=== PATIENT | male | born 1950 | race American Indian/Alaskan Native ===

== ENCOUNTER 2016-10-10 23:37 | Emergency (ER) | payer MEDICAID, MEDICARE ==
[2016-10-11 00:35] VITALS: BP 198/134
[2016-10-11 02:32] LABS: Basophils % (Auto) 1.2 % (0.0-1.8); Mean Corpuscular HGB Conc 31 % (32-34); Mean Corpuscular Hemoglobin 28 pg (28-32); Mean Corpuscular Volume 90 fl (84-94); Red Blood Count 5.68 M/mm3 (3.65-5.03); Red Cell Distribution Width 15.9 % (13.2-15.2); White Blood Count 6.1 K/mm3 (4.5-11.0)
[2016-10-11 02:39] LABS: Hematocrit 51.1 % (35.5-45.6); Hemoglobin 15.8 gm/dl (11.8-15.2)
[2016-10-11 02:49] LABS: Albumin 3.3 g/dL (3.9-5); BUN/Creatinine Ratio 10.47; Bilirubin,Total 1.4 mg/dL (0.1-1.2); Calcium 10.4 mg/dL (8.4-10.2); Chloride 109.6 mmol/L (98-107); Magnesium 1.8 mg/dL (1.7-2.3); Total Protein 6.7 g/dL (6.3-8.2)
[2016-10-11 03:04] LABS: Platelet Count 174 K/mm3 (140-440)
[2016-10-11 05:02] LABS: Urine Drugs of Abuse Note Disclamer
[2016-10-11 05:22] LABS: Bilirubin,Urine NEG (Negative); Blood,Urine MOD (Negative); Ketones,Urine TR mg/dL (Negative); Leukocyte Esterase,Urine NEG (Negative); Mucus,Urine FEW /HPF; Nitrite,Urine NEG (Negative); Urobilinogen,Urine < 2.0 mg/dL (<2.0)
[2016-10-11 05:25] LABS: Protein,Urine >500 mg/dL (Negative)
== END 2016-10-11 06:39 | disposition left against medical advice (07) ==
LOC: ED 23:37
DX: R41.82 Altered mental status, unspecified (principal); Z53.21 Procedure and treatment not carried out due to patient leaving prior to being seen by health care provider
CPT/HCPCS: 36415; 80053; 80307; 81001; 82140; 82962; 83735; 84443; 85025; 93005; 93010; G0480; 80320